=== PATIENT | male | born 1980 | race African-American/Black ===

== ENCOUNTER 2017-05-02 16:13 | Emergency (ER) | payer OTHER ==
[~2017-05-02] VITALS: Ht 175.3 cm; Wt 79.4 kg
[2017-05-02 16:21] VITALS: BP 119/67
[2017-05-02] MEDS ORDERED: LIDOCAINE 1% Multi-Dose 20 ML VIAL. ID ONE (17:00)
[2017-05-02] MEDS ORDERED: DIPHTH,PERTUSS(ACELL),TET TOX 0.5 ML DISP.SYRIN. VAX IM ONE (17:00)
--- NOTE | 2017-05-02 17:49 | PHYS DOC ---
Past Medical History Past Medical History: No Pertinent History Past Surgical History: No Surgical History Alcohol Use: None Drug Use: Marijuana Adult General Chief Complaint Chief Complaint: SYNCOPE HPI HPI Patient is a 36 year old male who drove himself to the ED with the complaint of syncope, facial injuries. His grandmother is here with him. The patient states he was in a hot garage, he stood up and was going to go into the house to get something to eat, he felt lightheaded, and he fell face forward, had a brief syncopal episode, landed on his face on the carpet. He believes he was only out less than a minute. He has no pain at this time, says his neck is a little stiff on the right side. He has a lip laceration but denies injury to his teeth. He otherwise feels okay. He's never passed out before. He has no chronic medical problems. Last tetanus unknown Review of Systems Review of Systems Constitutional: Denies fever or chills [] Eyes: Denies change in visual acuity, redness, or eye pain [] HENT: Denies nosebleed, does have lip injuries Respiratory: Denies cough or shortness of breath [] Cardiovascular: Denies chest pain GI: Denies abdominal pain, nausea, vomiting, bloody stools or diarrhea [] : Denies dysuria or hematuria [] Musculoskeletal: Denies back pain or joint pain [] Integument: Denies rash or skin lesions [] Neurologic: Denies headache, focal weakness or sensory changes [] Current Medications Current Medications Current Medications Medications (Trade) Dose Ordered Sig/Marlene Start Time Stop Time Status Last Admin Dose Admin Diphtheria/ Tetanus/Acell Pertussis (Boostrix) 0.5 ml ONCE ONCE 05/02/17 17:00 05/02/17 17:01 DC 05/02/17 17:00 0.5 ML Lidocaine HCl 10 ml 1X ONCE 05/02/17 17:00 05/02/17 17:01 DC 05/02/17 17:14 10 ML Allergies Allergies Allergies Coded Allergies Type Severity Reaction Last Updated Verified No Known Drug Allergies 05/02/17 No Physical Exam Physical Exam Constitutional: Well developed, well nourished, no acute distress, non-toxic appearance. Heart rate low 50s, blood pressure 114/71 HENT: Small abrasion to the central forehead. Small abrasion to the left zygoma area. 1.5 cm C-shaped laceration to the lower lip inside the vermilion border. 1 cm corresponding laceration to the lower lip inside the lip, appears to be through and through. No fracture or injury to the teeth. No loose teeth. No other lip or mouth injuries. No tongue injury. Eyes: PERRLA, EOMI, conjunctiva normal, no discharge. [] Neck: Normal range of motion, no bony tenderness, supple, no stridor. Mild tenderness to palpation of the trapezius over the right lateral neck, no spasm. Cardiovascular:Heart rate regular rhythm, no murmur, sinus bradycardia in the low 50s Lungs & Thorax: Bilateral breath sounds clear to auscultation [] Abdomen: Bowel sounds normal, soft, no tenderness, no masses, no pulsatile masses. [] Skin: Warm, dry, no erythema, no rash. [] Extremities: No tenderness, no cyanosis, no clubbing, ROM intact, no edema. No tenderness or deformity to the shoulders, elbows, wrists, knees. Neurologic: Alert and oriented X 3, normal motor function, normal sensory function, no focal deficits noted. [] Current Patient Data Vital Signs Vital Signs Date Time Temp Pulse Resp B/P (MAP) Pulse Ox O2 Delivery O2 Flow Rate FiO2 05/02/17 16:21 98.7 68 17 119/67 (84) 97 Room Air 98.7 EKG EKG 12-lead EKG read by me. Sinus bradycardia. Heart rate 57. No rhythm disturbances. There are no acute ST or T wave changes indicative of ischemia or infarction. There is J-point elevation. No STEMI. 1620 [] Radiology/Procedures Radiology/Procedures CT scan of the head and maxillofacial read by the radiologist. No acute findings on the head. Maxillofacial did show a nondisplaced nasal bone fracture. Procedure: Repair of inside and outside lower lip lacerations by me. Total 2.5 cm total laceration length The lower lip lacerations were prepped with Betadine, anesthetized with 1% lidocaine plain. A splash shield was used to irrigate. It is clearly a through and through lip laceration, irrigation fluid from the inside came out through the outside laceration. The inside 1 cm laceration was closed with one horizontal mattress suture of 4- 0 silk. Good result. The outside C-shaped 1.5 cm laceration was closed with 3 simple interrupted sutures of 5-0 silk. Good result. [] Course & Med Decision Making Course & Med Decision Making Pertinent Labs and Imaging studies reviewed. (See chart for details) 36-year-old male had a brief syncopal episode and landed on a carpeted surface on his face. A forehead abrasion and a through and through lower lip laceration are noted. See procedure note. Patient remained stable in the ED. See instructions for plan. [] Dragon Disclaimer Dragon Disclaimer This electronic medical record was generated, in whole or in part, using a voice recognition dictation system. Departure Departure Impression: Primary Impression: Syncope Additional Impressions: Closed head injury Laceration of lower lip Nasal bone fracture Disposition: 01 HOME, SELF-CARE Condition: STABLE Referrals: NO PCP (PCP) Patient Instructions: Head Injury, Adult, [id number], Laceration Care, Adult , [id number], Syncope, [id number] Additional Instructions: As we discussed, I believe you passed out because you're heart rate and your blood pressure tend to be low. This can be a sign of a healthy heart, but sometimes can make you more likely to pass out if you are little dehydrated or overheated. Try to avoid being dehydrated or overheated. CT scan did not show any injury inside of your skull. See head injury precautions. CT scan did show a nondisplaced fracture of your nose. Avoid blowing your nose for 1-2 weeks. Your nose might swell, use ice. Because the broken bone is not displaced, you should not require any further treatment for that. As we discussed, the stitches need to be removed in about 5 days, about Monday. You may go to urgent care or return to emergency for this. Keep your laceration on the outside moistened with Vaseline for comfort. Use half-strength mouthwash to gently swish around the inside laceration. Be careful with chewing, salty or spicy or acidy foods. Ibuprofen as needed for aches and pains, ice to the lip for swelling if needed. Scripts Penicillin V Potassium (PENICILLIN V POTASSIUM) 250 Mg Tablet 250 MG PO TID for mouth injury for 5 Days, #15 TAB 0 Refills Prov: PATRICIA HELMS MD 7/4/17 Problem Qualifiers PATRICIA HELMS MD May 02, 2017 17:49
--- NOTE | 2017-05-02 18:02 | RAD ---
CT of the head without contrast, 05/02/2017: HISTORY: Lightheadedness fall, injury The ventricles are within normal limits in size. There is no shift of the midline structures. There is no evidence of acute intracranial hemorrhage or mass effect. IMPRESSION: No acute intracranial abnormality is detected. CT of the facial bones without contrast, 05/02/2017: Noncontrast scans were obtained with multiplanar reconstructions produced. There is a subtle lucency within the right side of the nasal bones compatible with a nondisplaced fracture. Its age is indeterminate. The facial bones are otherwise unremarkable. There is mild mucosal thickening in the maxillary and ethmoid sinuses. No free fluid is evident in the paranasal sinuses. The orbital contents are unremarkable. There is mild deviation of the nasal septum to the left of midline. There is considerable swelling of the nasal turbinates bilaterally. IMPRESSION: Nondisplaced nasal bone fracture. Electronically signed by: Jaspal Sigala MD (05/02/2017 5:58 PM)
[2017-05-02] MEDS ORDERED: PENI250T85 PO (18:08)
--- NOTE | 2017-05-03 06:57 | EKG ---
[facility] [address] [place] [address] Test Date: 2017-05-02 Test Time: 16:20:57 Pat Name: BEVERLY MEYER Department: Room: Gender: M Brass Pourer: : 1980 Requested By: PATRICIA HELMS Order Number: [id number] Reading MD: Measurements Intervals [place] Rate: 57 P: 44 WY: 140 QRS: 59 QRSD: 90 T: 59 QT: 360 QTc: 353 Interpretive Statements SINUS RHYTHM QRS(T) CONTOUR ABNORMALITY CANNOT RULE OUT ANTEROSEPTAL MYOCARDIAL DAMAGE ST & T ABNORMALITY, CONSIDER RECENT INFERIOR MYOCARDIAL OR PERICARDIAL DAMAGE RI6.01 Unconfirmed report No previous ECG available for comparison
== END 2017-05-02 18:20 | disposition home or self-care (01) ==
LOC: ER 16:13
DX: S02.2XXA Fracture of nasal bones, initial encounter for closed fracture (principal); S01.511A Laceration without foreign body of lip, initial encounter; S00.81XA Abrasion of other part of head, initial encounter; S09.90XA Unspecified injury of head, initial encounter; R55 Syncope and collapse; F12.10 Cannabis abuse, uncomplicated; W01.198A Fall on same level from slipping, tripping and stumbling with subsequent striking against other object, initial encounter; Y93.89 Activity, other specified; Y92.89 Other specified places as the place of occurrence of the external cause; Y99.8 Other external cause status
CPT/HCPCS: 12011; 70450; 70486; 90471; 90715; 93005; 99284-25

== ENCOUNTER 2017-05-06 10:39 | Emergency (ER) | payer OTHER ==
[~2017-05-06] VITALS: Ht 175.3 cm; Wt 79.4 kg
[~2017-05-06 10:39] MED LIST: PENI250T85 PO
[2017-05-06 10:45] VITALS: BP 119/75
--- NOTE | 2017-05-06 11:04 | PHYS DOC ---
Past Medical History Past Medical History: No Pertinent History Past Surgical History: No Surgical History Alcohol Use: Occasionally Drug Use: Marijuana Social History Narrative: DENIES RECENT DRUG USE. HX OF MARIJUANA USE Adult General Chief Complaint Chief Complaint: SUTURE/STAPLE REMOVAL [facility] Patient is a 36 year old male presents to the emergency department stating that he had sutures placed on 02 May. Patient states his tetanus immunization is up-to-date. Patient states he may have had some yellow drainage coming from the wounds however he is on antibiotics. He denies fever, wounds appear to have been sutured with a mattress suture in the inner side of the lip the outer part appears to have 3 sutures that are intact. No drainage or discharge noted from the areas no redness noted. Patient presents to the emergency department for suture removal. Review of Systems Review of Systems Constitutional: Denies fever or chills [] Eyes: Denies change in visual acuity, redness, or eye pain [] HENT: Denies nasal congestion or sore throat [] Respiratory: Denies cough or shortness of breath [] Cardiovascular: No additional information not addressed in HPI [] GI: Denies abdominal pain, nausea, vomiting, bloody stools or diarrhea [] : Denies dysuria or hematuria [] Musculoskeletal: Denies back pain or joint pain [] Integument: Denies rash or skin lesions. Suture removal lower lip Neurologic: Denies headache, focal weakness or sensory changes [] Endocrine: Denies polyuria or polydipsia [] Allergies Allergies Allergies Coded Allergies Type Severity Reaction Last Updated Verified No Known Drug Allergies 05/02/17 No Physical Exam Physical Exam Constitutional: Well developed, well nourished, no acute distress, non-toxic appearance. [] HENT: Normocephalic, atraumatic, bilateral external ears normal, oropharynx moist, no oral exudates, nose normal. [] Eyes: PERRLA, EOMI, conjunctiva normal, no discharge. [] Neck: Normal range of motion, no tenderness, supple, no stridor. [] Cardiovascular:Heart rate regular rhythm, no murmur [] Lungs & Thorax: Bilateral breath sounds clear to auscultation [] Skin: Warm, dry, no erythema, no rash. Patient presents to the emergency department with sutures noted in the inner side of the lower lip, as well as sutures on the outer part of the lip. Areas appear to be without redness drainage or tenderness. Edges have approximated well. Sutures are intact. Back: No tenderness Extremities: No tenderness, no cyanosis, no clubbing, ROM intact, no edema. [] Neurologic: Alert and oriented X 3, normal motor function, normal sensory function, no focal deficits noted. [] Psychologic: Affect normal, judgement normal, mood normal. [] Current Patient Data Vital Signs Vital Signs Date Time Temp Pulse Resp B/P (MAP) Pulse Ox O2 Delivery O2 Flow Rate FiO2 05/06/17 10:45 97.7 52 16 98 Room Air 97.7 EKG EKG [] Radiology/Procedures Radiology/Procedures [] Course & Med Decision Making Course & Med Decision Making Pertinent Labs and Imaging studies reviewed. (See chart for details) Sutures removed by nursing staff. Patient tolerated suture removal without difficulty. Patient was encouraged to continue taking the antibiotics as prescribed. Signs and symptoms of infection was provided to the patient. Patient will be discharged home in stable condition. [] Dragon Disclaimer Dragon Disclaimer This electronic medical record was generated, in whole or in part, using a voice recognition dictation system. Departure Departure Impression: Primary Impression: Visit for suture removal Disposition: HOME, SELF-CARE Condition: STABLE Referrals: NO PCP (PCP) Patient Instructions: Suture Removal-Brief Additional Instructions: Sutures were removed successfully. Continue to keep the areas clean and dry. Continue to clean the outer lip wound with soap and water twice a day. Warm salt water mouth rinses for the inner wound. Continue to watch for signs and symptoms of infection: Redness, warmth, tenderness or any yellow/greenish drainage of a come from the site. Continue to take antibiotics as prescribed. Follow-up through primary care physician as needed. Return back to emergency prior signs and symptoms of become worse. JULIUS YADAV APRN May 06, 2017 11:04
== END 2017-05-06 11:06 | disposition home or self-care (01) ==
LOC: ER 10:39
DX: Z48.02 Encounter for removal of sutures (principal)
CPT/HCPCS: 99281

== ENCOUNTER 2019-05-14 16:09 | Emergency (ER) | payer OTHER ==
[~2019-05-14] VITALS: Ht 182.9 cm; Wt 79.4 kg
[2019-05-14 16:35] VITALS: BP 129/68
--- NOTE | 2019-05-14 16:38 | PHYS DOC ---
Past Medical History Past Medical History: No Pertinent History Past Surgical History: No Surgical History Alcohol Use: Occasionally Drug Use: Marijuana Adult General Chief Complaint Chief Complaint: FINGER INJURY HPI HPI Patient is a 38 year old male presents to the ED complaining of finger injury x 1 day ago. States he jammed his 3rd and 4th finger while swimming yesterday. Describes his pain as sharp. Rates his pain as 5/10. Pain with ROM. Denies nail bed injury, laceration, subungual hematoma, paresthesias, or fever. Review of Systems Review of Systems Constitutional: Denies fever or chills [] Eyes: Denies change in visual acuity, redness, or eye pain [] HENT: Denies nasal congestion or sore throat [] Respiratory: Denies cough or shortness of breath [] Cardiovascular: No additional information not addressed in HPI [] GI: Denies abdominal pain, nausea, vomiting, bloody stools or diarrhea [] : Denies dysuria or hematuria [] Musculoskeletal: Complains of finger injury. Denies back pain. Integument: Denies rash or skin lesions [] Neurologic: Denies headache, focal weakness or sensory changes [] All other systems were reviewed and found to be within normal limits, except as documented in this note. Allergies Allergies Allergies Coded Allergies Type Severity Reaction Last Updated Verified No Known Drug Allergies 05/02/17 No Physical Exam Physical Exam Constitutional: Well developed, well nourished, no acute distress, non-toxic appearance. [] HENT: Normocephalic, atraumatic Skin: Warm, dry, no erythema, no rash. [] Back: No tenderness, no CVA tenderness. [] Extremities: Mild left 3rd and 4th finger tenderness, no cyanosis, no clubbing, ROM intact, no edema. No overlying skin changes. [] Neurologic: Alert and oriented X 3, normal motor function, normal sensory function, no focal deficits noted. [] Psychologic: Affect normal, judgement normal, mood normal. [] Current Patient Data Vital Signs Vital Signs Date Time Temp Pulse Resp B/P (MAP) Pulse Ox O2 Delivery O2 Flow Rate FiO2 05/14/19 16:35 98.2 61 18 129/68 (88) 98 Room Air 98.2 EKG EKG [] Radiology/Procedures Radiology/Procedures []PROCEDURE: FINGER(S) LEFT THREE VIEWS LEFT FINGER Clinical History: Third and fourth finger injury Technique: AP view of the hand, as well as lateral and oblique collimated views of the third and fourth fingers were obtained. Comparison: None. Findings: There is no acute fracture or dislocation. Mineralization is normal. The joint spaces are maintained. There is no radiopaque foreign body. The soft tissues are normal. IMPRESSION: No acute fracture. Course & Med Decision Making Course & Med Decision Making Pertinent Labs and Imaging studies reviewed. (See chart for details) [] Dragon Disclaimer Dragon Disclaimer This electronic medical record was generated, in whole or in part, using a voice recognition dictation system. Departure Departure Impression: Primary Impression: Finger sprain Disposition: 01 HOME, SELF-CARE Condition: IMPROVED Referrals: NO PCP (PCP) HORTENSIA SHETTY MD Patient Instructions: Finger Sprain AQUILES VILLARREAL May 14, 2019 16:38
--- NOTE | 2019-05-14 16:56 | RAD ---
THREE VIEWS LEFT FINGER Clinical History: Third and fourth finger injury Technique: AP view of the hand, as well as lateral and oblique collimated views of the third and fourth fingers were obtained. Comparison: None. Findings: There is no acute fracture or dislocation. Mineralization is normal. The joint spaces are maintained. There is no radiopaque foreign body. The soft tissues are normal. IMPRESSION: No acute fracture. Electronically signed by: Praful Hodgson MD (05/14/2019 4:53 PM) [id number]
== END 2019-05-14 17:26 | disposition home or self-care (01) ==
LOC: ER 16:09
DX: S63.693A Other sprain of left middle finger, initial encounter (principal); S63.695A Other sprain of left ring finger, initial encounter; X58.XXXA Exposure to other specified factors, initial encounter; Y93.11 Activity, swimming; Y92.89 Other specified places as the place of occurrence of the external cause; Y99.8 Other external cause status
CPT/HCPCS: 73140; 99284